=== PATIENT | male | born 1995 | race Caucasian/White ===

== ENCOUNTER 2017-06-14 17:07 | Emergency (ER) | payer OTHER ==
[~2017-06-14] VITALS: Ht 172.7 cm; Wt 65.8 kg
[~2017-06-14 17:07] MED LIST: ARIP20 PO; BUDE32NIS; DESL5; FLUO20 PO; IBUP100S; INSLI100I SC; INSUASPI SC; INSULANI SC; INSULANPEN SC; MELA3 PO; Zofran Odt8 MG SL; [UNRECOGNIZED DRUG - OTHER]
[2017-06-14 17:49] LABS: BASOPHILS ABSOLUTE AUTO 0.12 K/mm3 (0.00-0.23); BASOPHILS PERCENT AUTO 1 % (0-2); EOSINOPHILS ABSOLUTE AUTO 0.21 K/mm3 (0.00-0.68); EOSINOPHILS PERCENT AUTO 1 % (0-6); Hematocrit 39.6 % (37.0-53.0); Hemoglobin 13.6 g/dL (13.5-17.5); IMMATURE GRAN ABSOLUTE AUTO 0.03 K/mm3 (0.00-0.10); IMMATURE GRAN PERCENT AUTO 0 % (0-1); LYMPHOCYTES ABSOLUTE AUTO 3.85 K/mm3 (0.84-5.20); LYMPHOCYTES PERCENT AUTO 26 % (21-46); MONOCYTES ABSOLUTE AUTO 0.86 K/mm3 (0.16-1.47); MONOCYTES PERCENT AUTO 6 % (4-13); Mean Corpuscular HGB 30.6 pg (26.0-34.0); Mean Corpuscular HGB Conc 34.3 g/dL (31.5-36.5); Mean Corpuscular Volume 89 fL (80-100); Mean Platelet Volume 9.6 fL (9.1-12.4); NEUTROPHILS ABSOLUTE AUTO 9.95 K/mm3 (1.96-9.15); NEUTROPHILS PERCENT AUTO 66 % (41-73); Platelet Count 315 K/mm3 (150-400); RDW Coefficient Variation 13.4 % (11.7-14.2); RDW Standard Deviation 43.6 fL (35.1-46.3); Red Blood Cell Count 4.44 M/mm3 (4.30-5.90); White Blood Cell Count 15.02 K/mm3 (4.00-11.30)
[2017-06-14 18:04] LABS: Source, Urine Clean Catch
[2017-06-14 18:05] LABS: Alanine Aminotransfer (ALT/SGP 33 U/L (12-78); Albumin, Blood 3.5 g/dL (3.4-5.0); Alk Phos 96 U/L (50-136); Anion Gap 5 mmol/L (6-16); Aspartate Aminotrans (AST/SGOT 25 U/L (12-37); Bilirubin, Total 0.2 mg/dL (0.1-1.0); Blood Urea Nitrogen 17 mg/dL (8-24); CO2, Blood 27 mmol/L (21-32); Calcium, Blood 8.9 mg/dL (8.5-10.1); Chloride, Blood 107 mmol/L (98-108); Creatinine, Blood 0.63 mg/dL (0.60-1.20); Globulin, Blood 3.4 g/dL (2.2-4.0); Glomerular Filtration Rate >60 (60-); Glucose, Blood 164 mg/dL (70-99); Potassium, Blood 4.4 mmol/L (3.5-5.5); Sodium, Blood 139 mmol/L (136-145); Total Protein, Blood 6.9 g/dL (6.4-8.2)
[2017-06-14 18:09] LABS: Bilirubin, Urine Neg (Neg); Blood, Urine 2+ (Neg); Glucose Qualitative, Urine 2+ (Neg); Ketones, Urine Neg (Neg); Leukocyte Esterase, Urine 2+ (Neg); Nitrite, Urine Neg (Neg); Protein, Urine 3+ (Neg); Urobilinogen, Urine 1+ (Normal)
[2017-06-14 18:10] LABS: Chloride (POC) 103 mmol/L (98-108); Creatinine (POC) 0.6 mg/dL (0.8-1.3); Glucose (ISTAT POC) 217 mg/dL (70-99); Hemoglobin (POC) 12.9 g/dL (13.5-17.5); Potassium (POC) 4.2 mmol/L (3.5-5.5); Sodium (POC) 139 mmol/L (135-148); Total CO2 (POC) 26 mmol/L (21-32)
[2017-06-14 18:21] LABS: Appearance, Urine Hazy (Clear); Color, Urine Yellow (P-Yellow)
[2017-06-14 18:25] LABS: Calcium Oxalate Crystals Many /hpf; Squamous Epithelial Cells Few /hpf (Few)
[2017-06-14 18:26] LABS: Bacteria Mod /hpf
[2017-06-14 18:27] LABS: U Amphetamine Screen Not Detected; U Barbituate Screen Not Detected; U Benzodiazapine Screen Not Detected; U Cocaine Screen Not Detected; U Methamphetamine Screen Not Detected; U Opiates Screen Not Detected
[2017-06-14 18:28] LABS: U Buprenorphine Screen Not Detected; U Cannabinoids Screen DETECTED; U Methadone Screen Not Detected; U Oxycodone Screen Not Detected; U Phencyclidine Screen Not Detected; U Propoxyphene Screen Not Detected
[2017-06-14] MEDS ORDERED: METO5A PO (20:16)
[2018-01-15] MEDS ORDERED: COMPAZINE10 MG PO (19:30)
== END 2017-06-14 20:25 | disposition home or self-care (01) ==
LOC: ER 17:07
PROVIDERS: Internal Medicine
DX: R10.33 Periumbilical pain (principal); G89.29 Other chronic pain; E11.10 Type 2 diabetes mellitus with ketoacidosis without coma; Z79.4 Long term (current) use of insulin; F17.200 Nicotine dependence, unspecified, uncomplicated
CPT/HCPCS: 74177; 80047; 80053; 81001; 82010; 83690; 85014; 85025; 96374; 96375; 99284; C9113; J2405; J2765; J3010; J3490; Q9967

== ENCOUNTER 2017-06-29 04:51 | Emergency (ER) | payer OTHER ==
[~2017-06-29] VITALS: Ht 167.6 cm; Wt 61.7 kg
[~2017-06-29 04:51] MED LIST changes: +METO5A PO
[2017-06-29 05:12] LABS: BASOPHILS PERCENT AUTO 1 % (0-2); EOSINOPHILS ABSOLUTE AUTO 0.17 K/mm3 (0.00-0.68); EOSINOPHILS PERCENT AUTO 1 % (0-6); Hematocrit 42.9 % (37.0-53.0); Hemoglobin 14.7 g/dL (13.5-17.5); IMMATURE GRAN ABSOLUTE AUTO 0.04 K/mm3 (0.00-0.10); IMMATURE GRAN PERCENT AUTO 0 % (0-1); LYMPHOCYTES ABSOLUTE AUTO 2.97 K/mm3 (0.84-5.20); LYMPHOCYTES PERCENT AUTO 19 % (21-46); MONOCYTES ABSOLUTE AUTO 0.96 K/mm3 (0.16-1.47); MONOCYTES PERCENT AUTO 6 % (4-13); Mean Corpuscular HGB 30.2 pg (26.0-34.0); Mean Corpuscular HGB Conc 34.3 g/dL (31.5-36.5); Mean Corpuscular Volume 88 fL (80-100); Mean Platelet Volume 9.5 fL (9.1-12.4); NEUTROPHILS ABSOLUTE AUTO 11.69 K/mm3 (1.96-9.15); NEUTROPHILS PERCENT AUTO 73 % (41-73); Platelet Count 313 K/mm3 (150-400); RDW Coefficient Variation 12.9 % (11.7-14.2); RDW Standard Deviation 41.1 fL (35.1-46.3); Red Blood Cell Count 4.87 M/mm3 (4.30-5.90); White Blood Cell Count 15.93 K/mm3 (4.00-11.30)
[2017-06-29 05:20] LABS: Calcium, Ionized (POC) 1.08 mmol/L (1.10-1.46); Chloride (POC) 102 mmol/L (98-108); Creatinine (POC) 0.6 mg/dL (0.8-1.3); Glucose (ISTAT POC) 453 mg/dL (70-99); Hemoglobin (POC) 14.6 g/dL (13.5-17.5); Potassium (POC) 4.6 mmol/L (3.5-5.5); Sodium (POC) 136 mmol/L (135-148); Total CO2 (POC) 21 mmol/L (21-32)
[2017-06-29 05:32] LABS: Alanine Aminotransfer (ALT/SGP 35 U/L (12-78); Albumin, Blood 3.7 g/dL (3.4-5.0); Albumin/Globulin Ratio 0.9 (0.8-1.8); Alk Phos 113 U/L (50-136); Anion Gap 12 mmol/L (6-16); Aspartate Aminotrans (AST/SGOT 31 U/L (12-37); Bilirubin, Total 0.9 mg/dL (0.1-1.0); Blood Urea Nitrogen 17 mg/dL (8-24); Bun/Creatinine Ratio 29.6 (12.0-20.0); CO2, Blood 21 mmol/L (21-32); Calcium, Blood 8.8 mg/dL (8.5-10.1); Chloride, Blood 102 mmol/L (98-108); Creatinine, Blood 0.57 mg/dL (0.60-1.20); Glomerular Filtration Rate >60 (60-); Glucose, Blood 456 mg/dL (70-99); Potassium, Blood 4.5 mmol/L (3.5-5.5); Sodium, Blood 135 mmol/L (136-145); Total Protein, Blood 7.7 g/dL (6.4-8.2)
[2017-06-29] MEDS ORDERED: Zofran Odt4 MG PO (06:08)
[2018-01-15] MEDS ORDERED: COMPAZINE10 MG PO (19:30)
== END 2017-06-29 06:19 | disposition home or self-care (01) ==
LOC: ER 04:51
PROVIDERS: Emergency Medicine
DX: E11.65 Type 2 diabetes mellitus with hyperglycemia (principal); R10.9 Unspecified abdominal pain; E11.10 Type 2 diabetes mellitus with ketoacidosis without coma; E11.43 Type 2 diabetes mellitus with diabetic autonomic (poly)neuropathy; K31.84 Gastroparesis; F17.200 Nicotine dependence, unspecified, uncomplicated; Z79.4 Long term (current) use of insulin
CPT/HCPCS: 80047; 80053; 82947; 83690; 85014; 85025; 96361; 96374; 96375; 99283; J1630; J1815; J2405; J7030

== ENCOUNTER 2017-07-26 15:07 | Emergency (ER) | payer OTHER ==
[~2017-07-26] VITALS: Ht 167.6 cm; Wt 67.1 kg
[~2017-07-26 15:07] MED LIST changes: +Zofran Odt4 MG PO
[2018-01-15] MEDS ORDERED: COMPAZINE10 MG PO (19:30)
== END 2017-07-26 16:00 | disposition home or self-care (01) ==
LOC: ER 15:07
DX: E09.649 Drug or chemical induced diabetes mellitus with hypoglycemia without coma (principal); T38.3X5A Adverse effect of insulin and oral hypoglycemic [antidiabetic] drugs, initial encounter; Z79.4 Long term (current) use of insulin; Z79.899 Other long term (current) drug therapy
CPT/HCPCS: 82947; 99283

== ENCOUNTER 2017-07-29 12:26 | Emergency (ER) | payer OTHER ==
[~2017-07-29] VITALS: Ht 167.6 cm; Wt 58.1 kg
[2017-07-29] MEDS ORDERED: ESCI10 PO (13:49)
[2018-01-15] MEDS ORDERED: COMPAZINE10 MG PO (19:30)
== END 2017-07-29 14:03 | disposition home or self-care (01) ==
LOC: ER 12:26
DX: E11.649 Type 2 diabetes mellitus with hypoglycemia without coma (principal); F17.200 Nicotine dependence, unspecified, uncomplicated; Z79.4 Long term (current) use of insulin
CPT/HCPCS: 82947; 99283

== ENCOUNTER 2017-08-18 11:51 | Emergency (ER) | payer OTHER ==
[~2017-08-18] VITALS: Ht 170.2 cm; Wt 67.1 kg
[~2017-08-18 11:51] MED LIST changes: +ESCI10 PO
[2017-08-18 12:23] LABS: BASOPHILS ABSOLUTE AUTO 0.16 K/mm3 (0.00-0.23); BASOPHILS PERCENT AUTO 2 % (0-2); EOSINOPHILS ABSOLUTE AUTO 0.22 K/mm3 (0.00-0.68); EOSINOPHILS PERCENT AUTO 2 % (0-6); Hematocrit 43.1 % (37.0-53.0); Hemoglobin 14.5 g/dL (13.5-17.5); IMMATURE GRAN ABSOLUTE AUTO 0.06 K/mm3 (0.00-0.10); IMMATURE GRAN PERCENT AUTO 1 % (0-1); LYMPHOCYTES ABSOLUTE AUTO 2.81 K/mm3 (0.84-5.20); LYMPHOCYTES PERCENT AUTO 30 % (21-46); MONOCYTES ABSOLUTE AUTO 0.62 K/mm3 (0.16-1.47); MONOCYTES PERCENT AUTO 7 % (4-13); Mean Corpuscular HGB 28.9 pg (26.0-34.0); Mean Corpuscular HGB Conc 33.6 g/dL (31.5-36.5); Mean Corpuscular Volume 86 fL (80-100); Mean Platelet Volume 8.8 fL (9.1-12.4); NEUTROPHILS ABSOLUTE AUTO 5.41 K/mm3 (1.96-9.15); NEUTROPHILS PERCENT AUTO 58 % (41-73); Platelet Count 335 K/mm3 (150-400); RDW Coefficient Variation 12.4 % (11.7-14.2); RDW Standard Deviation 38.9 fL (35.1-46.3); Red Blood Cell Count 5.01 M/mm3 (4.30-5.90); White Blood Cell Count 9.28 K/mm3 (4.00-11.30)
[2017-08-18 12:42] LABS: Alanine Aminotransfer (ALT/SGP 44 U/L (12-78); Albumin, Blood 3.6 g/dL (3.4-5.0); Albumin/Globulin Ratio 0.8 (0.8-1.8); Alk Phos 122 U/L (50-136); Anion Gap 8 mmol/L (6-16); Aspartate Aminotrans (AST/SGOT 37 U/L (12-37); Beta-hydroxybutyrate 1.2 mg/dL (0.2-2.8); Bilirubin, Total 0.3 mg/dL (0.1-1.0); Blood Urea Nitrogen 18 mg/dL (8-24); Bun/Creatinine Ratio 27.9 (12.0-20.0); CO2, Blood 26 mmol/L (21-32); Calcium, Blood 9.1 mg/dL (8.5-10.1); Chloride, Blood 105 mmol/L (98-108); Creatinine, Blood 0.65 mg/dL (0.60-1.20); Globulin, Blood 4.5 g/dL (2.2-4.0); Glomerular Filtration Rate >60 (60-); Glucose, Blood 192 mg/dL (70-99); Potassium, Blood 3.8 mmol/L (3.5-5.5); Sodium, Blood 139 mmol/L (136-145); Total Protein, Blood 8.1 g/dL (6.4-8.2)
[2018-01-15] MEDS ORDERED: COMPAZINE10 MG PO (19:30)
== END 2017-08-18 13:48 | disposition home or self-care (01) ==
LOC: ER 11:51
PROVIDERS: Emergency Medicine
DX: E10.65 Type 1 diabetes mellitus with hyperglycemia (principal); F17.200 Nicotine dependence, unspecified, uncomplicated
CPT/HCPCS: 36415; 80053; 82010; 85025; 96374; 96375; 99283; J1200; J2765; J7030

== ENCOUNTER 2017-08-22 11:02 | Observation (INO) | payer OTHER ==
[~2017-08-22] VITALS: Ht 170.2 cm; Wt 58.7 kg
[2017-08-22 11:15] LABS: Calcium, Ionized (POC) 1.19 mmol/L (1.10-1.46); Chloride (POC) 105 mmol/L (98-108); Creatinine (POC) 0.6 mg/dL (0.8-1.3); Glucose (ISTAT POC) 380 mg/dL (70-99); Hemoglobin (POC) 12.2 g/dL (13.5-17.5); Potassium (POC) 4.2 mmol/L (3.5-5.5); Sodium (POC) 138 mmol/L (135-148); Total CO2 (POC) 24 mmol/L (21-32)
[2017-08-22 11:25] LABS: BASOPHILS ABSOLUTE AUTO 0.08 K/mm3 (0.00-0.23); BASOPHILS PERCENT AUTO 1 % (0-2); EOSINOPHILS ABSOLUTE AUTO 0.31 K/mm3 (0.00-0.68); EOSINOPHILS PERCENT AUTO 4 % (0-6); Hematocrit 36.2 % (37.0-53.0); Hemoglobin 11.9 g/dL (13.5-17.5); IMMATURE GRAN ABSOLUTE AUTO 0.07 K/mm3 (0.00-0.10); IMMATURE GRAN PERCENT AUTO 1 % (0-1); LYMPHOCYTES ABSOLUTE AUTO 2.51 K/mm3 (0.84-5.20); LYMPHOCYTES PERCENT AUTO 29 % (21-46); MONOCYTES ABSOLUTE AUTO 0.54 K/mm3 (0.16-1.47); MONOCYTES PERCENT AUTO 6 % (4-13); Mean Corpuscular HGB Conc 32.9 g/dL (31.5-36.5); Mean Corpuscular Volume 88 fL (80-100); Mean Platelet Volume 9.1 fL (9.1-12.4); NEUTROPHILS ABSOLUTE AUTO 5.04 K/mm3 (1.96-9.15); NEUTROPHILS PERCENT AUTO 59 % (41-73); Platelet Count 243 K/mm3 (150-400); RDW Coefficient Variation 12.6 % (11.7-14.2); RDW Standard Deviation 40.8 fL (35.1-46.3); White Blood Cell Count 8.55 K/mm3 (4.00-11.30)
[2017-08-22 11:44] LABS: Acetaminophen, Random <2.0 ug/mL (10.0-30.0); Alanine Aminotransfer (ALT/SGP 35 U/L (12-78); Albumin, Blood 2.9 g/dL (3.4-5.0); Albumin/Globulin Ratio 0.8 (0.8-1.8); Alk Phos 91 U/L (50-136); Anion Gap 6 mmol/L (6-16); Aspartate Aminotrans (AST/SGOT 31 U/L (12-37); Bilirubin, Total 0.3 mg/dL (0.1-1.0); Blood Urea Nitrogen 12 mg/dL (8-24); Bun/Creatinine Ratio 19.1 (12.0-20.0); CO2, Blood 25 mmol/L (21-32); Calcium, Blood 7.8 mg/dL (8.5-10.1); Chloride, Blood 108 mmol/L (98-108); Creatinine, Blood 0.63 mg/dL (0.60-1.20); Ethanol (Alcohol), Blood, Med <3 mg/dL; Globulin, Blood 3.6 g/dL (2.2-4.0); Glomerular Filtration Rate >60 (60-); Glucose, Blood 355 mg/dL (70-99); Potassium, Blood 4.2 mmol/L (3.5-5.5); Salicylate <1.7 mg/dL (2.8-20.0); Sodium, Blood 139 mmol/L (136-145); Total Protein, Blood 6.5 g/dL (6.4-8.2)
[2017-08-22 13:46] LABS: Creatine Kinase MB 3.1 ng/mL (0.0-3.6); Creatine Kinase MB Index 2.3 (0.0-4.0)
[2017-08-22 14:37] LABS: Source, Urine Clean Catch
[2017-08-22 14:46] LABS: Appearance, Urine Clear (Clear); Bilirubin, Urine Neg (Neg); Blood, Urine 1+ (Neg); Color, Urine Yellow (P-Yellow); Glucose Qualitative, Urine 4+ (Neg); Ketones, Urine Neg (Neg); Leukocyte Esterase, Urine Neg (Neg); Nitrite, Urine Neg (Neg); Protein, Urine Neg (Neg); Urobilinogen, Urine NORM (Normal)
[2017-08-22 15:02] LABS: Bacteria Rare /hpf; Squamous Epithelial Cells Rare /hpf (Few); White Blood Cells, Urine 0-2 /hpf (0-5)
[2017-08-22 15:44] LABS: U Amphetamine Screen Not Detected; U Barbituate Screen Not Detected; U Benzodiazapine Screen Not Detected; U Buprenorphine Screen Not Detected; U Cannabinoids Screen DETECTED; U Cocaine Screen Not Detected; U Methadone Screen Not Detected; U Methamphetamine Screen Not Detected; U Opiates Screen Not Detected; U Oxycodone Screen Not Detected; U Phencyclidine Screen Not Detected; U Propoxyphene Screen Not Detected
[2017-08-22 15:49] LABS: Test Name TRICYL
[2017-08-22] MEDS ORDERED: ESCI10 (16:09)
[2018-01-15] MEDS ORDERED: COMPAZINE10 MG PO (19:30)
== END 2017-08-22 22:55 | disposition left against medical advice (07) ==
LOC: ER 11:02 → ICUW 11:03 → ICUE 16:21 → UNDODEPER 16:40 → ICUW 16:40
PROVIDERS: Emergency Medicine
DX: G25.79 Other drug induced movement disorders (principal); T45.0X5A Adverse effect of antiallergic and antiemetic drugs, initial encounter; T43.015A Adverse effect of tricyclic antidepressants, initial encounter; E10.43 Type 1 diabetes mellitus with diabetic autonomic (poly)neuropathy; K31.84 Gastroparesis; F12.90 Cannabis use, unspecified, uncomplicated; F32.9 Major depressive disorder, single episode, unspecified; Z79.899 Other long term (current) drug therapy; Z23 Encounter for immunization
CPT/HCPCS: 36415; 51701; 51798; 80047; 80053; 80307; 81001; 82550; 82553; 82947; 84443; 85014; 85025; 93005; 93010; 96372; 96374; 99285; G0008; G0378; G0480; J1200; J1650; J1815; J1817; J7120; Q2038

== ENCOUNTER → 2017-10-28 | Outpatient (CLI) | payer OTHER ==
[~2017-10-28] MED LIST changes: +ESCI10
[2017-10-30 17:08] LABS: CHLAMYDIA TRACHOMATIS, NAA Positive (Negative); NEISSERIA GONORRHOEAE, NAA Negative (Negative)
== END | disposition home or self-care (01) ==
LOC: LAB EV 15:34 → LAB SHORT 15:34
PROVIDERS: Physician Assistant Medical
DX: Z72.51 High risk heterosexual behavior (principal)
CPT/HCPCS: 87491; 87591

== ENCOUNTER 2018-11-05 22:22 | Emergency (ER) | payer OTHER ==
[~2018-11-05] VITALS: Ht 167.6 cm; Wt 59.0 kg
[~2018-11-05 22:22] MED LIST changes: +COMPAZINE10 MG PO; +Cipro500 MG PO; +Flagyl500 MG PO; +METO10 PO; +ONDA4ODT MM; +PROM25 PO
== END 2018-11-05 22:58 | disposition left against medical advice (07) ==
LOC: ER 22:22
DX: Z53.21 Procedure and treatment not carried out due to patient leaving prior to being seen by health care provider (principal)

== ENCOUNTER 2018-11-06 01:05 | Emergency (ER) | payer OTHER ==
[~2018-11-06] VITALS: Ht 165.1 cm; Wt 59.0 kg
== END 2018-11-06 04:14 | disposition home or self-care (01) ==
LOC: ER 01:05
DX: F12.19 Cannabis abuse with unspecified cannabis-induced disorder (principal); R11.2 Nausea with vomiting, unspecified; R10.9 Unspecified abdominal pain; E11.9 Type 2 diabetes mellitus without complications; F17.210 Nicotine dependence, cigarettes, uncomplicated; Z79.4 Long term (current) use of insulin
CPT/HCPCS: 82947; 96374; 96375; 99284-25; J1200; J1630

== ENCOUNTER 2019-07-27 22:41 | Emergency (ER) | payer OTHER ==
[~2019-07-27] VITALS: Ht 167.6 cm; Wt 54.0 kg
[~2019-07-27 22:41] MED LIST changes: -ESCI10
[2019-07-27] MEDS ORDERED: AMIT25 PO (22:56)
[2019-07-27] MEDS ORDERED: Apidra Sol100 UNIT/1 SC (22:57)
[2019-07-27 23:04] LABS: BASOPHILS PERCENT AUTO 1 % (0-2); EOSINOPHILS ABSOLUTE AUTO 0.11 K/mm3 (0.00-0.68); EOSINOPHILS PERCENT AUTO 1 % (0-6); Hematocrit 34.2 % (37.0-53.0); Hemoglobin 11.4 g/dL (13.5-17.5); IMMATURE GRAN ABSOLUTE AUTO 0.04 K/mm3 (0.00-0.10); IMMATURE GRAN PERCENT AUTO 0 % (0-1); LYMPHOCYTES ABSOLUTE AUTO 2.78 K/mm3 (0.84-5.20); LYMPHOCYTES PERCENT AUTO 25 % (21-46); MONOCYTES ABSOLUTE AUTO 0.47 K/mm3 (0.16-1.47); MONOCYTES PERCENT AUTO 4 % (4-13); Mean Corpuscular HGB 30.2 pg (26.0-34.0); Mean Corpuscular HGB Conc 33.3 g/dL (31.5-36.5); Mean Corpuscular Volume 91 fL (80-100); Mean Platelet Volume 9.5 fL (9.1-12.4); NEUTROPHILS ABSOLUTE AUTO 7.44 K/mm3 (1.96-9.15); NEUTROPHILS PERCENT AUTO 68 % (41-73); Platelet Count 267 K/mm3 (150-400); RDW Coefficient Variation 13.2 % (11.7-14.2); RDW Standard Deviation 43.5 fL (35.1-46.3); Red Blood Cell Count 3.78 M/mm3 (4.30-5.90); White Blood Cell Count 10.94 K/mm3 (4.00-11.30)
[2019-07-27 23:27] LABS: Alanine Aminotransfer (ALT/SGP 37 U/L (12-78); Albumin, Blood 3.1 g/dL (3.4-5.0); Alk Phos 110 U/L (50-136); Anion Gap 6 mmol/L (6-16); Aspartate Aminotrans (AST/SGOT 21 U/L (12-37); Bilirubin, Total 0.3 mg/dL (0.1-1.0); Blood Urea Nitrogen 17 mg/dL (8-24); Bun/Creatinine Ratio 25.4 (12.0-20.0); CO2, Blood 23 mmol/L (21-32); Calcium, Blood 8.1 mg/dL (8.5-10.1); Chloride, Blood 108 mmol/L (98-108); Creatinine, Blood 0.67 mg/dL (0.60-1.20); Globulin, Blood 3.2 g/dL (2.2-4.0); Glomerular Filtration Rate >60 (60-); Glucose, Blood 432 mg/dL (70-99); Potassium, Blood 4.4 mmol/L (3.5-5.5); Sodium, Blood 137 mmol/L (136-145); Total Protein, Blood 6.3 g/dL (6.4-8.2)
[2019-07-28] MEDS ORDERED: Vitamin D2000 UNIT PO (20:22)
[2019-07-28] MEDS ORDERED: B-121000 MC3 PO (20:22)
[2019-07-28] MEDS ORDERED: AMIT10 PO (23:02)
[2019-07-28] MEDS ORDERED: CELEXA10 MG PO (23:04)
[2019-07-28] MEDS ORDERED: NOVOLOG FL100 UNIT/1 SC (23:07)
== END 2019-07-27 23:56 | disposition home or self-care (01) ==
LOC: ER 22:41
PROVIDERS: Emergency Medicine
DX: E11.65 Type 2 diabetes mellitus with hyperglycemia (principal); F17.210 Nicotine dependence, cigarettes, uncomplicated; Z79.899 Other long term (current) drug therapy; Z79.4 Long term (current) use of insulin
CPT/HCPCS: 80053; 82947; 83690; 85025; 96360; 99283-25; J7030

== ENCOUNTER 2019-07-28 19:08 | Inpatient (IN) | payer OTHER ==
[~2019-07-28] VITALS: Ht 167.6 cm; Wt 58.6 kg
[~2019-07-28 19:08] MED LIST changes: +AMIT25 PO; +Apidra Sol100 UNIT/1 SC
[2019-07-28 19:46] LABS: BASOPHILS ABSOLUTE AUTO 0.18 K/mm3 (0.00-0.23); BASOPHILS PERCENT AUTO 1 % (0-2); EOSINOPHILS ABSOLUTE AUTO 0.07 K/mm3 (0.00-0.68); EOSINOPHILS PERCENT AUTO 0 % (0-6); Hematocrit 43.1 % (37.0-53.0); IMMATURE GRAN ABSOLUTE AUTO 0.08 K/mm3 (0.00-0.10); IMMATURE GRAN PERCENT AUTO 1 % (0-1); LYMPHOCYTES ABSOLUTE AUTO 3.78 K/mm3 (0.84-5.20); LYMPHOCYTES PERCENT AUTO 23 % (21-46); MONOCYTES ABSOLUTE AUTO 0.82 K/mm3 (0.16-1.47); MONOCYTES PERCENT AUTO 5 % (4-13); Mean Corpuscular HGB 30.2 pg (26.0-34.0); Mean Corpuscular HGB Conc 32.5 g/dL (31.5-36.5); Mean Corpuscular Volume 93 fL (80-100); Mean Platelet Volume 9.8 fL (9.1-12.4); NEUTROPHILS ABSOLUTE AUTO 11.77 K/mm3 (1.96-9.15); NEUTROPHILS PERCENT AUTO 71 % (41-73); Platelet Count 351 K/mm3 (150-400); RDW Coefficient Variation 13.1 % (11.7-14.2); RDW Standard Deviation 44.8 fL (35.1-46.3); Red Blood Cell Count 4.64 M/mm3 (4.30-5.90)
[2019-07-28 19:52] LABS: Base Excess Venous -20.6 mmol/L; Bicarbonate Venous 11.2 mmol/L (24.0-30.0); PCO2 Venous 22.3 mmHg (38-42); PO2 Venous 116 mmHg (38-42); pH Blood Venous 7.17 (7.34-7.37)
[2019-07-28] MEDS ORDERED: Vitamin D2000 UNIT PO (20:22)
[2019-07-28] MEDS ORDERED: B-121000 MC3 PO (20:22)
[2019-07-28 20:31] LABS: Alanine Aminotransfer (ALT/SGP 54 U/L (12-78); Albumin, Blood 3.9 g/dL (3.4-5.0); Alk Phos 139 U/L (50-136); Anion Gap 22 mmol/L (6-16); Aspartate Aminotrans (AST/SGOT 53 U/L (12-37); Beta-hydroxybutyrate 88.1 mg/dL (0.2-2.8); Bilirubin, Total 0.7 mg/dL (0.1-1.0); Blood Urea Nitrogen 21 mg/dL (8-24); Bun/Creatinine Ratio 33.7 (12.0-20.0); CO2, Blood 8 mmol/L (21-32); Calcium, Blood 8.9 mg/dL (8.5-10.1); Chloride, Blood 101 mmol/L (98-108); Creatinine, Blood 0.62 mg/dL (0.60-1.20); Globulin, Blood 3.8 g/dL (2.2-4.0); Glomerular Filtration Rate >60 (60-); Glucose, Blood 491 mg/dL (70-99); Potassium, Blood 4.5 mmol/L (3.5-5.5); Sodium, Blood 131 mmol/L (136-145); Total Protein, Blood 7.7 g/dL (6.4-8.2)
[2019-07-28 21:12] LABS: Source, Urine Clean Catch
[2019-07-28 21:20] LABS: Bilirubin, Urine Neg (Neg); Blood, Urine 1+ (Neg); Glucose Qualitative, Urine 4+ (Neg); Ketones, Urine 4+ (Neg); Leukocyte Esterase, Urine Neg (Neg); Nitrite, Urine Neg (Neg); Protein, Urine 1+ (Neg); Urobilinogen, Urine NORM (Normal)
[2019-07-28 21:25] LABS: Appearance, Urine Clear (Clear); Color, Urine Yellow (P-Yellow)
[2019-07-28 21:35] LABS: Bacteria Not Seen /hpf; Red Blood Cells, Urine 0-2 /hpf (0-2); Squamous Epithelial Cells Not Seen /hpf (Few); White Blood Cells, Urine Not Seen /hpf (0-5)
--- NOTE | 2019-07-28 22:55 | NUR ---
PT ARRIVED TO ICU 4 FROM ER VIA GURNEY. PT TRANSFERS SELF TO BED WITH MINIMAL ASSIST BUT PT IS WEAK T/O. STATES HE HAS HAD POOR INTAKE AND N/V FOR 3 DAYS. PT IS SHIVERING. GAVE WARM BLANKETS AND TURNED HEAT UP IN ROOM. PT STATES HE HAS NOT TAKEN ANTIDEPRESSANTS FOR 3 WEEKS. STATES HE HAS PAIN ALL OVER BUT NON SPECIFIC AND WILL FALL TO SLEEP WHEN LEFT ALONE. HE IS POOR HISTORIAN. PT KEEPS STATING HE WANTS A HOT SHOWER. NOT STABLE ENOUGH TO GET TO THE SHOWER AT THIS TIME. DECREASED INSULIN GTT TO 2 UNITS/HR AFTER ARRIVING TO ICU AND CBG READS 288. PT HAS NS BOLUS RUNNING.
[2019-07-28] MEDS ORDERED: AMIT10 PO (23:02)
[2019-07-28] MEDS ORDERED: CELEXA10 MG PO (23:04)
[2019-07-28] MEDS ORDERED: NOVOLOG FL100 UNIT/1 SC (23:07)
[2019-07-28 23:30] LABS: Anion Gap 24 mmol/L (6-16); Blood Urea Nitrogen 19 mg/dL (8-24); Bun/Creatinine Ratio 27.5 (12.0-20.0); CO2, Blood 7 mmol/L (21-32); Calcium, Blood 7.6 mg/dL (8.5-10.1); Chloride, Blood 111 mmol/L (98-108); Creatinine, Blood 0.69 mg/dL (0.60-1.20); Glomerular Filtration Rate >60 (60-); Glucose, Blood 302 mg/dL (70-99); Potassium, Blood 4.1 mmol/L (3.5-5.5)
[2019-07-28 23:31] LABS: Sodium, Blood 142 mmol/L (136-145)
[2019-07-29 03:39] LABS: BASOPHILS ABSOLUTE AUTO 0.11 K/mm3 (0.00-0.23); BASOPHILS PERCENT AUTO 0 % (0-2); EOSINOPHILS ABSOLUTE AUTO 0.01 K/mm3 (0.00-0.68); EOSINOPHILS PERCENT AUTO 0 % (0-6); Hematocrit 34.4 % (37.0-53.0); Hemoglobin 11.3 g/dL (13.5-17.5); IMMATURE GRAN ABSOLUTE AUTO 0.14 K/mm3 (0.00-0.10); IMMATURE GRAN PERCENT AUTO 1 % (0-1); LYMPHOCYTES PERCENT AUTO 17 % (21-46); MONOCYTES ABSOLUTE AUTO 1.51 K/mm3 (0.16-1.47); MONOCYTES PERCENT AUTO 6 % (4-13); Mean Corpuscular HGB 30.1 pg (26.0-34.0); Mean Corpuscular HGB Conc 32.8 g/dL (31.5-36.5); Mean Corpuscular Volume 92 fL (80-100); Mean Platelet Volume 9.3 fL (9.1-12.4); NEUTROPHILS ABSOLUTE AUTO 19.57 K/mm3 (1.96-9.15); NEUTROPHILS PERCENT AUTO 76 % (41-73); Platelet Count 296 K/mm3 (150-400); RDW Coefficient Variation 13.2 % (11.7-14.2); RDW Standard Deviation 44.7 fL (35.1-46.3); Red Blood Cell Count 3.75 M/mm3 (4.30-5.90); White Blood Cell Count 25.74 K/mm3 (4.00-11.30)
[2019-07-29 03:57] LABS: Alanine Aminotransfer (ALT/SGP 42 U/L (12-78); Alk Phos 108 U/L (50-136); Anion Gap 16 mmol/L (6-16); Aspartate Aminotrans (AST/SGOT 27 U/L (12-37); Bilirubin, Total 0.3 mg/dL (0.1-1.0); Blood Urea Nitrogen 14 mg/dL (8-24); Bun/Creatinine Ratio 21.9 (12.0-20.0); CO2, Blood 12 mmol/L (21-32); Calcium, Blood 7.5 mg/dL (8.5-10.1); Chloride, Blood 114 mmol/L (98-108); Creatinine, Blood 0.64 mg/dL (0.60-1.20); Globulin, Blood 3.1 g/dL (2.2-4.0); Glomerular Filtration Rate >60 (60-); Glucose, Blood 162 mg/dL (70-99); Potassium, Blood 4.1 mmol/L (3.5-5.5); Sodium, Blood 142 mmol/L (136-145); Total Protein, Blood 6.1 g/dL (6.4-8.2)
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
--- NOTE | 2019-07-29 08:41 | NUR ---
ASSUMED CARE PT. ALERT AND ORIENTED THIS AM. SLEEPING SOUNDLY. PT. AWAKENS EASILY TO VERBAL STIMULI. DENIES PAIN AT THIS TIME. PT REMAINS ON RA. INSULIN GTT STILL INFUSING AT 3U/HR, ALONG WITH D5 1/2NS. PT GF SLEEPING AT BEDSIDE. VSS. CALL LIGHT IN REACH.
--- NOTE | 2019-07-29 09:30 | NUR ---
CALL TO DR. LU FOR ADDITONAL LABS AND TRANSITION ORDERS TO SUBCU INSULIN. ONCE GAP AND CO2 ARE NORMALIZED.
[2019-07-29 09:45] LABS: Anion Gap 9 mmol/L (6-16); Blood Urea Nitrogen 9 mg/dL (8-24); Bun/Creatinine Ratio 14.9 (12.0-20.0); CO2, Blood 19 mmol/L (21-32); Calcium, Blood 7.8 mg/dL (8.5-10.1); Chloride, Blood 113 mmol/L (98-108); Creatinine, Blood 0.61 mg/dL (0.60-1.20); Glomerular Filtration Rate >60 (60-); Glucose, Blood 128 mg/dL (70-99); Potassium, Blood 3.5 mmol/L (3.5-5.5); Sodium, Blood 141 mmol/L (136-145)
--- NOTE | 2019-07-29 10:27 | NUR ---
LONG ACTING INSULIN GIVEN ALONG WITH ADA DIET MEAL TRAY. PT SITTING UP AT BEDSIDE EATING. INSULIN GTT TO BE DC'D AND PT TO BE TRANSITIONED TO SUBCU INSULIN. VSS.
--- NOTE | 2019-07-29 11:32 | NUR ---
EMERGENCY DEPARTMENT CALLED FOR ASSISTANCE WITH MAKING SURE THAT PT CAN GET MEDICATIONS AT HOME.
--- NOTE | 2019-07-29 11:57 | NUR ---
PT BACK FROM SHOWER, LUNCH TRAY SET UP. PT. NEEDS ENCOURAGEMENT TO EAT. GIRLFRIEND REMAINS AT BEDSIDE. VSS
--- NOTE | 2019-07-29 14:00 | NUR ---
ASSUMED CARE ASSUMED CARE OF PT AT 1400. REPORT RECEIVED FROM NIRAV BARTH. PT IN ROOM, VISITING WITH GIRLFRIEND. IV SALINE LOCKED. DENIES ANY NEEDS AT THIS TIME. WILL CONTINUE TO MONITOR PT.
--- NOTE | 2019-07-29 14:02 | NUR ---
REPORT TO ANDREEA GASTELUM
--- NOTE | 2019-07-29 16:55 | NUR ---
BG 69 APPLE JUICE AND YOGURT GIVEN. PATIENT HAS NO COMPLAINTS AT THIS TIME. WILL RECHECK BG IN ONE HOUR.
--- NOTE | 2019-07-29 18:53 | NUR ---
SHIFT SUMMARY PT STATES FEELING MUCH BETTER THIS EVENING. BLOOD SUGAR WAS LOW BEFORE DINNER. MEAL COVERAGE HELD. PT ATE DINNER PLUS YOGURT AND ORANGE JUICE. RE-CHECK 199. PT DENIES COMPLAINTS OF NAUSEA, VOMITING, HEADACHE. PT UP IN ROOM AD SERGEY WITH GIRLFRIEND IN ROOM. VITAL SIGNS STABLE. IV SL. WILL CONTINUE TO MONITOR PT AND GIVE HANDOFF REPORT TO ONCOMING RN.
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
--- NOTE | 2019-07-29 22:40 | NUR ---
AMA- @2199 PATIENT DECIDED THAT HE DID NOT WANT TO STAY IN THE HOSPITAL. HE STATED THAT HE HAS MANY PHOBIAS THAT INCREASE HIS ANXIETY. WE HAD A RESPECTFUL CONVERSATION AND HE IS NOW CALLING A RELATIVE TO COME AND GET HIM. HE STATED THAT HIS AUNT HAS A VIAL OF INSULIN FROM [facility] THAT HE WILL USE UNTIL HE GETS HIS REFILL ON THURSDAY. PIERO TILLEY NOTIFIED OF HIS DESIRES. PATIENT DISCHARGED WITH S/O AND AUNT @ 6872.
== END 2019-07-29 22:44 | disposition home or self-care (01) | DRG 637 ==
LOC: ER 19:08 → ICUW 22:38 → ICUE 22:44
PROVIDERS: Emergency Medicine; Hospitalist; ADMIT Hospitalist
DX: E10.10 Type 1 diabetes mellitus with ketoacidosis without coma (principal); K22.6 Gastro-esophageal laceration-hemorrhage syndrome; E87.1 Hypo-osmolality and hyponatremia; F17.200 Nicotine dependence, unspecified, uncomplicated; Z79.4 Long term (current) use of insulin
CPT/HCPCS: 36415; 71046; 80048; 80053; 81001; 82010; 82803; 82947; 85025; 93005; 93010; A9270-GY; C9113; J1815; J2405; J2765; J7030; J7042

== ENCOUNTER 2020-03-16 06:41 | Emergency (ER) | payer OTHER ==
[~2020-03-16] VITALS: Ht 177.8 cm; Wt 54.0 kg
[~2020-03-16 06:41] MED LIST changes: +AMIT10 PO; +B-121000 MC3 PO; +CELEXA10 MG PO; +NOVOLOG FL100 UNIT/1 SC; +Vitamin D2000 UNIT PO
[2020-03-16 07:25] LABS: BASOPHILS ABSOLUTE AUTO 0.08 K/mm3 (0.00-0.23); BASOPHILS PERCENT AUTO 1 % (0-2); EOSINOPHILS ABSOLUTE AUTO 0.01 K/mm3 (0.00-0.68); EOSINOPHILS PERCENT AUTO 0 % (0-6); Hematocrit 41.1 % (37.0-53.0); Hemoglobin 14.5 g/dL (13.5-17.5); IMMATURE GRAN ABSOLUTE AUTO 0.08 K/mm3 (0.00-0.10); IMMATURE GRAN PERCENT AUTO 1 % (0-1); LYMPHOCYTES ABSOLUTE AUTO 4.51 K/mm3 (0.84-5.20); LYMPHOCYTES PERCENT AUTO 26 % (21-46); MONOCYTES ABSOLUTE AUTO 0.84 K/mm3 (0.16-1.47); MONOCYTES PERCENT AUTO 5 % (4-13); Mean Corpuscular HGB 29.2 pg (26.0-34.0); Mean Corpuscular HGB Conc 35.3 g/dL (31.5-36.5); Mean Corpuscular Volume 83 fL (80-100); Mean Platelet Volume 9.5 fL (9.1-12.4); NEUTROPHILS ABSOLUTE AUTO 11.57 K/mm3 (1.96-9.15); NEUTROPHILS PERCENT AUTO 68 % (41-73); Platelet Count 349 K/mm3 (150-400); RDW Coefficient Variation 12.4 % (11.7-14.2); RDW Standard Deviation 37.3 fL (35.1-46.3); Red Blood Cell Count 4.97 M/mm3 (4.30-5.90); White Blood Cell Count 17.09 K/mm3 (4.00-11.30)
[2020-03-16 07:32] LABS: Alanine Aminotransfer (ALT/SGP 39 U/L (12-78); Albumin, Blood 4.3 g/dL (3.4-5.0); Albumin/Globulin Ratio 1.1 (0.8-1.8); Alk Phos 122 U/L (50-136); Anion Gap 14 mmol/L (6-16); Aspartate Aminotrans (AST/SGOT 19 U/L (12-37); Bilirubin, Total 0.9 mg/dL (0.1-1.0); Blood Urea Nitrogen 19 mg/dL (8-24); Bun/Creatinine Ratio 26.4 (12.0-20.0); CO2, Blood 22 mmol/L (21-32); Calcium, Blood 10.1 mg/dL (8.5-10.1); Chloride, Blood 102 mmol/L (98-108); Creatinine, Blood 0.72 mg/dL (0.60-1.20); Globulin, Blood 3.9 g/dL (2.2-4.0); Glomerular Filtration Rate >60 (60-); Glucose, Blood 145 mg/dL (70-99); Potassium, Blood 3.2 mmol/L (3.5-5.5); Sodium, Blood 138 mmol/L (136-145); Total Protein, Blood 8.2 g/dL (6.4-8.2)
[2020-03-16 08:20] LABS: Base Excess Venous 4.6 mmol/L; Bicarbonate Venous 28.7 mmol/L (24.0-30.0); PO2 Venous 48.6 mmHg (38-42)
[2020-03-16 08:21] LABS: pH Blood Venous 7.54 (7.34-7.37)
[2020-03-16] MEDS ORDERED: Zofran4 MG PO (11:49)
== END 2020-03-16 12:16 | disposition home or self-care (01) ==
LOC: ER 06:41
PROVIDERS: Emergency Medicine
DX: R11.2 Nausea with vomiting, unspecified (principal); E87.3 Alkalosis; E11.9 Type 2 diabetes mellitus without complications; G93.40 Encephalopathy, unspecified; Z79.4 Long term (current) use of insulin; Z79.899 Other long term (current) drug therapy
CPT/HCPCS: 36415; 80053; 82010; 82803; 82947; 85025; 93005; 93010; 96374; 96375; 99284-25; C9113; J2405; J2550; J7030

== ENCOUNTER 2020-12-14 09:16 | Emergency (ER) | payer MEDICARE, OTHER ==
[~2020-12-14] VITALS: Ht 170.2 cm; Wt 68.0 kg
[~2020-12-14 09:16] MED LIST changes: +ARIPIPRAZOLE5 MG PO; +BASAGLAR K100 UNIT/1 SC; +FLUO10 PO; +LINZESS145 MCG PO; -NOVOLOG FL100 UNIT/1 SC; +NOVOLOG FL100 UNIT/3 SC; +OMEP20ER PO; +Zofran4 MG PO
[2020-12-14 09:50] LABS: Calcium, Ionized (POC) 1.01 mmol/L (1.10-1.46); Chloride (POC) 92 mmol/L (98-108); Creatinine (POC) 0.7 mg/dL (0.8-1.3); Glucose (ISTAT POC) 274 mg/dL (70-99); Hemoglobin (POC) 13.6 g/dL (13.5-17.5); Potassium (POC) 3.1 mmol/L (3.5-5.5); Sodium (POC) 135 mmol/L (135-148); Total CO2 (POC) 25 mmol/L (21-32)
== END 2020-12-14 10:52 | disposition home or self-care (01) ==
LOC: ER 09:16
PROVIDERS: Emergency Medicine
DX: R11.2 Nausea with vomiting, unspecified (principal); E10.9 Type 1 diabetes mellitus without complications; F17.210 Nicotine dependence, cigarettes, uncomplicated; Z79.899 Other long term (current) drug therapy
CPT/HCPCS: 36415; 80047; 82947; 85014; 96361; 96374; 99284-25; J1630; J7030

== ENCOUNTER 2023-01-24 12:28 | Emergency (ER) | payer MEDICARE, OTHER ==
[~2023-01-24] VITALS: Ht 167.6 cm; Wt 54.4 kg
[2023-01-24 13:06] VITALS: BP 140/86
[2023-01-24 13:38] LABS: BASOPHILS ABSOLUTE AUTO 0.13 K/mm3 (0.00-0.23); BASOPHILS PERCENT AUTO 2 % (0-2); EOSINOPHILS ABSOLUTE AUTO 0.24 K/mm3 (0.00-0.68); EOSINOPHILS PERCENT AUTO 3 % (0-6); Hematocrit 35.9 % (37.0-53.0); Hemoglobin 12.3 g/dL (13.5-17.5); IMMATURE GRAN ABSOLUTE AUTO 0.03 K/mm3 (0.00-0.10); IMMATURE GRAN PERCENT AUTO 0 % (0-1); LYMPHOCYTES ABSOLUTE AUTO 3.52 K/mm3 (0.84-5.20); LYMPHOCYTES PERCENT AUTO 42 % (21-46); MONOCYTES ABSOLUTE AUTO 0.73 K/mm3 (0.16-1.47); MONOCYTES PERCENT AUTO 9 % (4-13); Mean Corpuscular HGB 29.3 pg (26.0-34.0); Mean Corpuscular HGB Conc 34.3 g/dL (31.5-36.5); Mean Corpuscular Volume 86 fL (80-100); NEUTROPHILS ABSOLUTE AUTO 3.74 K/mm3 (1.96-9.15); NEUTROPHILS PERCENT AUTO 45 % (41-73); Platelet Count 261 K/mm3 (150-400); RDW Coefficient Variation 13.2 % (11.7-14.2); RDW Standard Deviation 41.2 fL (35.1-46.3); White Blood Cell Count 8.39 K/mm3 (4.00-11.30)
[2023-01-24 14:01] LABS: Albumin, Blood 3.6 g/dL (3.4-5.0); Albumin/Globulin Ratio 1.2 (0.8-1.8); Bilirubin, Total 0.6 mg/dL (0.1-1.0); Calcium, Blood 8.6 mg/dL (8.5-10.1); Creatinine, Blood 0.73 mg/dL (0.60-1.20); Globulin, Blood 3.1 g/dL (2.2-4.0); Potassium, Blood 4.7 mmol/L (3.5-5.5); Total Protein, Blood 6.7 g/dL (6.4-8.2)
[2023-01-24 14:59] LABS: Source, Urine Clean Catch
[2023-01-24 15:44] LABS: Appearance, Urine Clear (Clear); Bilirubin, Urine Neg (Neg); Blood, Urine 2+ (Neg); Color, Urine Yellow (P-Yellow); Glucose Qualitative, Urine 4+ (Neg); Ketones, Urine 3+ (Neg); Leukocyte Esterase, Urine Neg (Neg); Nitrite, Urine Neg (Neg); Protein, Urine Neg (Neg); Urobilinogen, Urine NORM (Normal); pH, Urine 6.5 (5.0-8.0)
[2023-01-24] MEDS ORDERED: [UNRECOGNIZED DRUG - SUPPLY] (15:47)
[2023-01-24] MEDS ORDERED: [UNRECOGNIZED DRUG - SUPPLY] (15:48)
[2023-01-24] MEDS ORDERED: EASY TOUCH UD (15:55)
[2023-01-24] MEDS ORDERED: BASAGLAR K100 UNIT/3 SC (15:55)
[2023-01-24] MEDS ORDERED: NOVOLOG FL100 UNIT/3 SC (15:55)
[2023-01-24 16:11] LABS: Bacteria Rare /hpf; Red Blood Cells, Urine 0-2 /hpf (0-2); Squamous Epithelial Cells Rare /hpf (Few); White Blood Cells, Urine 0-2 /hpf (0-5)
[2023-01-26] MEDS ORDERED: EASY TOUCH UD (11:02)
[2023-01-26] MEDS ORDERED: NOVOLOG FL100 UNIT/3 SC (11:02)
[2023-01-26] MEDS ORDERED: BASAGLAR K100 UNIT/3 SC (11:02)
== END 2023-01-24 15:43 | disposition home or self-care (01) ==
LOC: ER 12:28
PROVIDERS: Physician Assistant; Student in an Organized Health Care Education/Training Program
DX: E10.9 Type 1 diabetes mellitus without complications (principal); F17.210 Nicotine dependence, cigarettes, uncomplicated; Z79.4 Long term (current) use of insulin
CPT/HCPCS: 80053; 81001; 82947; 85025; 99284; J1815

== ENCOUNTER 2023-05-01 23:01 | Emergency (ER) | payer MEDICARE, OTHER ==
[~2023-05-01] VITALS: Ht 170.2 cm; Wt 55.8 kg
[~2023-05-01 23:01] MED LIST changes: +BASAGLAR K100 UNIT/3 SC; +EASY TOUCH UD; +[UNRECOGNIZED DRUG - SUPPLY]; +[UNRECOGNIZED DRUG - SUPPLY]
[2023-05-02 01:28] VITALS: BP 129/85
== END 2023-05-02 01:29 | disposition home or self-care (01) ==
LOC: ER 23:01
DX: M25.521 Pain in right elbow (principal); E11.9 Type 2 diabetes mellitus without complications; Z79.4 Long term (current) use of insulin; F17.210 Nicotine dependence, cigarettes, uncomplicated; Z79.899 Other long term (current) drug therapy; W18.30XA Fall on same level, unspecified, initial encounter
CPT/HCPCS: 73080; 99284-25; A9270

== ENCOUNTER 2023-05-04 11:16 | Emergency (ER) | payer MEDICARE, OTHER ==
[~2023-05-04] VITALS: Ht 170.2 cm; Wt 55.8 kg
[2023-05-04 12:25] VITALS: BP 118/83
== END 2023-05-04 12:24 | disposition home or self-care (01) ==
LOC: ER 11:16
DX: S52.121A Displaced fracture of head of right radius, initial encounter for closed fracture (principal); E11.9 Type 2 diabetes mellitus without complications; F17.210 Nicotine dependence, cigarettes, uncomplicated; Z79.4 Long term (current) use of insulin; Z79.899 Other long term (current) drug therapy; Z88.8 Allergy status to other drugs, medicaments and biological substances; W19.XXXA Unspecified fall, initial encounter
CPT/HCPCS: 29105; 99283-25

== ENCOUNTER 2023-05-21 22:59 | Observation (INO) | payer MEDICARE, OTHER ==
[~2023-05-21] VITALS: Ht 170.2 cm; Wt 55.8 kg
[2023-05-21 23:28] LABS: BASOPHILS ABSOLUTE AUTO 0.19 K/mm3 (0.00-0.23); BASOPHILS PERCENT AUTO 2 % (0-2); EOSINOPHILS ABSOLUTE AUTO 0.14 K/mm3 (0.00-0.68); EOSINOPHILS PERCENT AUTO 1 % (0-6); IMMATURE GRAN ABSOLUTE AUTO 0.06 K/mm3 (0.00-0.10); IMMATURE GRAN PERCENT AUTO 1 % (0-1); LYMPHOCYTES ABSOLUTE AUTO 3.67 K/mm3 (0.84-5.20); LYMPHOCYTES PERCENT AUTO 31 % (21-46); MONOCYTES ABSOLUTE AUTO 0.88 K/mm3 (0.16-1.47); MONOCYTES PERCENT AUTO 8 % (4-13); Mean Corpuscular HGB 29.7 pg (26.0-34.0); Mean Corpuscular HGB Conc 32.5 g/dL (31.5-36.5); Mean Corpuscular Volume 92 fL (80-100); Mean Platelet Volume 9.6 fL (9.1-12.4); NEUTROPHILS ABSOLUTE AUTO 6.79 K/mm3 (1.96-9.15); NEUTROPHILS PERCENT AUTO 58 % (41-73); Platelet Count 298 K/mm3 (150-400); RDW Coefficient Variation 12.2 % (11.7-14.2); RDW Standard Deviation 40.8 fL (35.1-46.3); Red Blood Cell Count 4.37 M/mm3 (4.30-5.90); White Blood Cell Count 11.73 K/mm3 (4.00-11.30)
[2023-05-21 23:43] LABS: Source, Urine Voided
[2023-05-21 23:48] LABS: Ethanol (Alcohol), Blood, Med 66 mg/dL; Salicylate <1.7 mg/dL (2.8-20.0); Thyroxine (T4) 9.7 ug/dL (4.5-12.1)
[2023-05-21 23:56] LABS: Bilirubin, Urine Neg (Neg); Blood, Urine 2+ (Neg); Glucose Qualitative, Urine 4+ (Neg); Ketones, Urine 2+ (Neg); Leukocyte Esterase, Urine Neg (Neg); Nitrite, Urine Neg (Neg); Protein, Urine 3+ (Neg); Urobilinogen, Urine NORM (Normal)
[2023-05-22 00:10] LABS: U Amphetamine Screen Not Detected; U Barbituate Screen Not Detected; U Benzodiazapine Screen Not Detected; U Buprenorphine Screen Not Detected; U Cannabinoids Screen DETECTED; U Cocaine Screen Not Detected; U Methadone Screen Not Detected; U Methamphetamine Screen Not Detected; U Opiates Screen Not Detected; U Oxycodone Screen Not Detected; U Phencyclidine Screen Not Detected
[2023-05-22 00:13] LABS: Acetaminophen, Random <2.0 ug/mL (10.0-30.0); Alanine Aminotransfer (ALT/SGP 32 U/L (12-78); Albumin, Blood 3.8 g/dL (3.4-5.0); Alk Phos 109 U/L (50-136); Anion Gap 14 mmol/L (6-16); Aspartate Aminotrans (AST/SGOT 28 U/L (12-37); Bilirubin, Total 0.4 mg/dL (0.1-1.0); Blood Urea Nitrogen 23 mg/dL (8-24); Bun/Creatinine Ratio 25.7 (12.0-20.0); CO2, Blood 17 mmol/L (21-32); Calcium, Blood 8.8 mg/dL (8.5-10.1); Chloride, Blood 101 mmol/L (98-108); Globulin, Blood 3.7 g/dL (2.2-4.0); Glomerular Filtration Rate 121 (60-); Glucose, Blood 559 mg/dL (70-99); Potassium, Blood 4.4 mmol/L (3.5-5.5); Sodium, Blood 132 mmol/L (136-145); Total Protein, Blood 7.5 g/dL (6.4-8.2)
[2023-05-22 00:14] LABS: Appearance, Urine Clear (Clear); Bacteria Few /hpf; Color, Urine Pale Yellow (P-Yellow); Squamous Epithelial Cells Few /hpf (Few); White Blood Cells, Urine 0-2 /hpf (0-5)
[2023-05-22 10:33] VITALS: BP 114/80
[2023-06-01] MEDS ORDERED: ASSURE PLATINU1 EAC2 UD (15:50)
== END 2023-06-01 12:50 | disposition home or self-care (01) ==
LOC: ER 22:59 → EOR 23:00 → ER 05-22 → EOR 05-22
PROVIDERS: Student in an Organized Health Care Education/Training Program; ADMIT Emergency Medicine
DX: F32.9 Major depressive disorder, single episode, unspecified (principal); F43.20 Adjustment disorder, unspecified; F10.129 Alcohol abuse with intoxication, unspecified; F12.99 Cannabis use, unspecified with unspecified cannabis-induced disorder; E11.9 Type 2 diabetes mellitus without complications; R45.851 Suicidal ideations; Z79.4 Long term (current) use of insulin
CPT/HCPCS: 80053; 81001; 82947; 84436; 84443; 85025; 99285; A9270; G0378; G0480; J1815

== ENCOUNTER 2023-06-01 13:19 | Emergency (ER) | payer MEDICARE, OTHER ==
[~2023-06-01] VITALS: Ht 170.2 cm; Wt 58.1 kg
[2023-06-01 14:17] LABS: BASOPHILS ABSOLUTE AUTO 0.14 K/mm3 (0.00-0.23); BASOPHILS PERCENT AUTO 1 % (0-2); EOSINOPHILS ABSOLUTE AUTO 0.22 K/mm3 (0.00-0.68); EOSINOPHILS PERCENT AUTO 1 % (0-6); Hematocrit 33.3 % (37.0-53.0); Hemoglobin 11.5 g/dL (13.5-17.5); IMMATURE GRAN ABSOLUTE AUTO 0.06 K/mm3 (0.00-0.10); IMMATURE GRAN PERCENT AUTO 0 % (0-1); LYMPHOCYTES ABSOLUTE AUTO 3.71 K/mm3 (0.84-5.20); LYMPHOCYTES PERCENT AUTO 22 % (21-46); MONOCYTES ABSOLUTE AUTO 0.83 K/mm3 (0.16-1.47); MONOCYTES PERCENT AUTO 5 % (4-13); Mean Corpuscular HGB 29.9 pg (26.0-34.0); Mean Corpuscular HGB Conc 34.5 g/dL (31.5-36.5); Mean Corpuscular Volume 87 fL (80-100); Mean Platelet Volume 9.7 fL (9.1-12.4); NEUTROPHILS ABSOLUTE AUTO 11.87 K/mm3 (1.96-9.15); NEUTROPHILS PERCENT AUTO 71 % (41-73); Platelet Count 268 K/mm3 (150-400); RDW Coefficient Variation 12.5 % (11.7-14.2); RDW Standard Deviation 39.5 fL (35.1-46.3); Red Blood Cell Count 3.84 M/mm3 (4.30-5.90); White Blood Cell Count 16.83 K/mm3 (4.00-11.30)
[2023-06-01 14:28] LABS: Base Excess Venous 1.6 mmol/L; Bicarbonate Venous 25.8 mmol/L (24.0-30.0); PCO2 Venous 39.8 mmHg (38-42); pH Blood Venous 7.42 (7.34-7.37)
[2023-06-01 15:42] LABS: Albumin, Blood 3.3 g/dL (3.4-5.0); Beta-hydroxybutyrate 1.2 mg/dL (0.2-2.8); Bilirubin, Total 0.3 mg/dL (0.1-1.0); Bun/Creatinine Ratio 37.6 (12.0-20.0); Calcium, Blood 8.8 mg/dL (8.5-10.1); Creatinine, Blood 0.75 mg/dL (0.60-1.20); Globulin, Blood 3.4 g/dL (2.2-4.0); Potassium, Blood 4.3 mmol/L (3.5-5.5); Total Protein, Blood 6.7 g/dL (6.4-8.2)
[2023-06-01] MEDS ORDERED: ASSURE PLATINU1 EAC2 UD (15:50)
[2023-06-01 16:50] VITALS: BP 123/78
== END 2023-06-01 16:53 | disposition home or self-care (01) ==
LOC: ER 13:19
PROVIDERS: Physician Assistant
DX: E11.65 Type 2 diabetes mellitus with hyperglycemia (principal); F17.210 Nicotine dependence, cigarettes, uncomplicated; Z88.8 Allergy status to other drugs, medicaments and biological substances; Z79.899 Other long term (current) drug therapy; Z79.4 Long term (current) use of insulin
CPT/HCPCS: 80053; 82010; 82803; 82947; 85025; 93005; 93010; 99283-25; J7030